=== PATIENT | male | born 1995 | race Caucasian/White ===

== ENCOUNTER 2019-11-21 21:30 | Emergency (ER) | payer OTHER ==
[~2019-11-21] VITALS: Ht 172.7 cm; Wt 131.8 kg
[2019-11-21 21:33] VITALS: BP 137/77
[2019-11-21] MEDS ORDERED: CLONI1TA PO (21:37)
[2019-11-21] MEDS ORDERED: ADDE15CA3 PO (21:37)
[2019-11-21] MEDS ORDERED: SUBO8MIS SL (21:37)
[2019-11-21] MEDS ORDERED: IBUP-1022 PO (23:45)
[2019-11-21] MEDS ORDERED: BENZONATATE 100 MG CAP PO ONE (23:45)
[2019-11-21] MEDS ORDERED: TESS100C PO (23:45)
[2019-11-21] MEDS ORDERED: IBUPROFEN 600 MG TAB PO ONE (23:45)
--- NOTE | 2019-11-22 08:06 | REP ---
Right rib series four views: There is a fracture of the right ninth rib posterolaterally. PA chest: There is no pneumothorax, hemothorax or pulmonary contusion. The lung roman are clear. The cardiac size is normal. The arleth, mediastinum, and skeletal structures are unremarkable. Impression: Negative PA chest. Electronically Signed by Edgar Velazquez MD 11/22/2019 07:57 A
== END 2019-11-22 00:11 | disposition home or self-care (01) ==
LOC: M ED 21:30
DX: R07.89 Other chest pain (principal); R05 Cough; F19.20 Other psychoactive substance dependence, uncomplicated; Z79.899 Other long term (current) drug therapy; Z79.891 Long term (current) use of opiate analgesic; Z88.0 Allergy status to penicillin; F17.210 Nicotine dependence, cigarettes, uncomplicated

== ENCOUNTER 2024-08-06 20:30 | Emergency (ER) | payer OTHER ==
[~2024-08-06] VITALS: Ht 175.3 cm; Wt 95.0 kg
[~2024-08-06 20:30] MED LIST: ADDE15CA3 PO; CLONI1TA PO; IBUP-1022 PO; SUBO8MIS SL; TESS100C PO
[2024-08-06 21:32] LABS: HEMATOCRIT 45.7 % (42.0-52.0); HEMOGLOBIN 15.6 g/dl (13.5-17.5); MEAN CORPUSCULAR HGB CONC 34.1 g/dl (32.0-36.5); MEAN CORPUSCULAR VOLUME 87.9 fl (80.0-96.0); PLATELET COUNT, AUTOMATED 223 10^3/uL (150-450); WHITE BLOOD COUNT 7.6 10^3/uL (4.0-10.0)
[2024-08-06] MEDS ORDERED: DOCU100C16 PO (21:45)
[2024-08-06] MEDS ORDERED: BUPR1FIL PO (21:45)
[2024-08-06] MEDS ORDERED: LOSA25TA13 PO (21:45)
[2024-08-06] MEDS ORDERED: HOME MED LIST COMPLETE! XX SCH (21:45)
[2024-08-06] MEDS ORDERED: VYVA70CA3 PO (21:45)
[2024-08-06 22:24] LABS: ETHYL ALCOHOL (ETHANOL) < 0.003 % (0.000-0.010)
[2024-08-06 22:26] LABS: ALBUMIN 4.3 G/DL (3.2-5.2); ALKALINE PHOSPHATASE 59 U/L (40-129); ALT/SGPT 34 U/L (7.0-40); AST/SGOT 34 U/L (<34); BILIRUBIN,DIRECT 0.3 MG/DL (<0.4); BILIRUBIN,TOTAL 0.9 MG/DL (0.3-1.2); BLOOD UREA NITROGEN 10 MG/DL (9-23); CALCIUM LEVEL 9.1 MG/DL (8.5-10.1); CARBON DIOXIDE LEVEL 26 MMOL/L (20-31); CHLORIDE LEVEL 107 MMOL/L (98-107); CREATININE FOR GFR 1.04 MG/DL (0.70-1.30); GLOMERULAR FILTRATION RATE > 60.0 (>60); GLUCOSE, FASTING 87 MG/DL (60-100); POTASSIUM SERUM 3.9 MMOL/L (3.5-5.1); SALICYLATE LEVEL < 3.0 MG/DL (<30); SODIUM LEVEL 139 MMOL/L (136-145); TOTAL PROTEIN 7.1 G/DL (5.7-8.2)
[2024-08-06 22:28] LABS: THYROID STIMULATING HORMONE 2.337 uIU/ML (0.55-4.78)
[2024-08-06 22:47] LABS: BARBITURATES URINE NEGATIVE (NEGATIVE); BENZODIAZEPINES URINE NEGATIVE (NEGATIVE); COCAINE METABOLITE URINE NEGATIVE (NEGATIVE); METHADONE URINE NEGATIVE (NEGATIVE); OPIATES URINE NEGATIVE (NEGATIVE); PHENCYCLIDINE URINE NEGATIVE (NEGATIVE)
[2024-08-06 22:51] LABS: AMPHETAMINES LEVEL URINE POSITIVE (NEGATIVE); CANNABINOIDS URINE POSITIVE (NEGATIVE)
[2024-08-07] MEDS ORDERED: diphenhydrAMINE 50MG/ML VIAL IM ONE (00:05)
[2024-08-07] MEDS ORDERED: HALOPERIDOL LACTATE 5MG/ML VIAL IM ONE (00:05)
[2024-08-07] MEDS ORDERED: LORazepam 2 MG/ML 1ML VIAL IM ONE (00:05)
[2024-08-07] MEDS ORDERED: diphenhydrAMINE 25MG CAP PO PRN (00:05)
[2024-08-07] MEDS ORDERED: LORazepam 2 MG TAB PO PRN (00:05)
[2024-08-07] MEDS: diphenhydrAMINE 25MG CAP PO ONE (01:15)
[2024-08-07] MEDS: LORazepam 2 MG TAB PO STA (01:15)
[2024-08-07] MEDS: diphenhydrAMINE 50MG/ML VIAL IM ONE (02:10)
[2024-08-07] MEDS: HALOPERIDOL LACTATE 5MG/ML VIAL IM ONE (02:21)
[2024-08-07] MEDS: LORazepam 2 MG/ML 1ML VIAL IM ONE (02:22)
[2024-08-07] MEDS: BUPRENORPHINE/NALOXONE 8-2MG SUBLINGUAL TABLET(SUBOXONE) SL SCH (09:29)
[2024-08-07] MEDS: DOCUSATE SODIUM 100MG CAPSULE PO SCH (09:29)
[2024-08-07] MEDS: LOSARTAN 25 MG TAB PO SCH (09:29)
[2024-08-07 11:27] VITALS: BP 107/57; TEMP 98; O2SAT 100
== END 2024-08-07 17:46 | disposition home or self-care (01) ==
LOC: M ED 20:30
DX: F15.14 Other stimulant abuse with stimulant-induced mood disorder (principal); F17.210 Nicotine dependence, cigarettes, uncomplicated; Z88.0 Allergy status to penicillin; Z79.899 Other long term (current) drug therapy
CPT/HCPCS: 80048; 80076; 80143; 80307; 82077; 84443; 85027; 96372; 99285; J1200; J1630; J2060

== ENCOUNTER 2024-09-14 09:45 | Inpatient (IN) | payer OTHER ==
[~2024-09-14 09:45] MED LIST changes: +BUPR1FIL PO; +DOCU100C16 PO; +LOSA25TA13 PO; +VYVA70CA3 PO
[2024-09-14 10:32] LABS: HEMATOCRIT 43.8 % (42.0-52.0); HEMOGLOBIN 15.3 g/dl (13.5-17.5); MEAN CORPUSCULAR HEMOGLOBIN 30.7 pg (27.0-33.0); MEAN CORPUSCULAR HGB CONC 34.9 g/dl (32.0-36.5); PLATELET COUNT, AUTOMATED 243 10^3/uL (150-450); RED BLOOD COUNT 4.98 10^6/uL (4.30-6.10); WHITE BLOOD COUNT 6.2 10^3/uL (4.0-10.0)
[2024-09-14 10:51] LABS: BARBITURATES URINE NEGATIVE (NEGATIVE)
[2024-09-14 10:52] LABS: BENZODIAZEPINES URINE NEGATIVE (NEGATIVE); COCAINE METABOLITE URINE NEGATIVE (NEGATIVE); METHADONE URINE NEGATIVE (NEGATIVE); OPIATES URINE NEGATIVE (NEGATIVE); PHENCYCLIDINE URINE NEGATIVE (NEGATIVE)
[2024-09-14 10:53] LABS: AMPHETAMINES LEVEL URINE POSITIVE (NEGATIVE); CANNABINOIDS URINE POSITIVE (NEGATIVE); ETHYL ALCOHOL (ETHANOL) 0.003 % (0.000-0.010)
[2024-09-14 10:55] LABS: ALBUMIN 4.3 G/DL (3.2-5.2); ALKALINE PHOSPHATASE 53 U/L (40-129); ALT/SGPT 21 U/L (7.0-40); AST/SGOT 18 U/L (<34); BILIRUBIN,DIRECT 0.2 MG/DL (<0.4); BILIRUBIN,TOTAL 0.5 MG/DL (0.3-1.2); BLOOD UREA NITROGEN 19 MG/DL (9-23); CALCIUM LEVEL 9.4 MG/DL (8.5-10.1); CARBON DIOXIDE LEVEL 28 MMOL/L (20-31); CHLORIDE LEVEL 104 MMOL/L (98-107); CREATININE FOR GFR 0.99 MG/DL (0.70-1.30); GLOMERULAR FILTRATION RATE > 60.0 (>60); GLUCOSE, FASTING 103 MG/DL (60-100); POTASSIUM SERUM 4.4 MMOL/L (3.5-5.1); SALICYLATE LEVEL < 3.0 MG/DL (<30); SODIUM LEVEL 141 MMOL/L (136-145); TOTAL PROTEIN 7.6 G/DL (5.7-8.2)
[2024-09-14 10:57] LABS: THYROID STIMULATING HORMONE 1.779 uIU/ML (0.55-4.78)
[2024-09-14] MEDS: LORazepam 2 MG TAB PO ONE ×2 (11:00→13:34)
[2024-09-14] MEDS: NICOTINE 21MG/24HR 1 EA TRANSDERMAL TD ONE (13:25)
[2024-09-14] MEDS ORDERED: ACETAMINOPHEN 325 MG TAB PO PRN (16:30)
[2024-09-14] MEDS ORDERED: MAALOX 30 ML SUSP *UDC PO PRN (16:30)
[2024-09-14] MEDS ORDERED: traZODone 50 MG TAB PO PRN (16:30)
[2024-09-14] MEDS ORDERED: HOME MED LIST COMPLETE! XX SCH (16:30)
[2024-09-14] MEDS ORDERED: IBUPROFEN 400MG TAB PO PRN (16:30)
[2024-09-14] MEDS ORDERED: MOM 30ML SUSPENSION UDC PO PRN (16:30)
[2024-09-14] MEDS ORDERED: diphenhydrAMINE 25MG CAP PO PRN (16:30)
[2024-09-14] MEDS: NICOTINE POLACRILEX 2 MG GUM PO ONE (19:59)
[2024-09-14] MEDS: BUPRENORPHINE/NALOXONE 8-2MG SUBLINGUAL TABLET(SUBOXONE) SL ONE (22:06)
[2024-09-15 06:26] VITALS: BP 123/71; TEMP 97.5; O2SAT 99
[2024-09-15 09:02] VITALS: BP 140/88
[2024-09-15] MEDS: DOCUSATE SODIUM 100MG CAPSULE PO SCH (09:05)
[2024-09-15] MEDS: BUPRENORPHINE/NALOXONE 8-2MG SUBLINGUAL TABLET(SUBOXONE) SL SCH (09:05)
[2024-09-15 10:15] VITALS: BP 140/88
[2024-09-15] MEDS: LOSARTAN 25 MG TAB PO SCH (10:15)
[2024-09-15] MEDS: NICOTINE POLACRILEX 2 MG GUM PO PRN (10:17)
[2024-09-15] MEDS: OLANZapine ORAL DISINTEGRATING TAB 5MG PO ONE (10:50)
== END 2024-09-15 12:45 | disposition home or self-care (01) | DRG 751 ==
LOC: M ED 09:45 → M ED INP 16:29 → M PSY 18:24
PROVIDERS: ADMIT Psychiatry & Neurology Psychiatry; ATTEND Psychiatry & Neurology Psychiatry
DX: F29 Unspecified psychosis not due to a substance or known physiological condition (principal); I10 Essential (primary) hypertension; F15.10 Other stimulant abuse, uncomplicated; F12.10 Cannabis abuse, uncomplicated; F10.10 Alcohol abuse, uncomplicated; F17.290 Nicotine dependence, other tobacco product, uncomplicated; N50.82 Scrotal pain; G89.29 Other chronic pain; Z88.0 Allergy status to penicillin; Z79.899 Other long term (current) drug therapy